=== PATIENT | female | born 1990 | race African-American/Black ===

== ENCOUNTER 2016-04-30 21:11 | Emergency (ER) | payer SELFPAY ==
[~2016-04-30] VITALS: Ht 157.5 cm; Wt 52.0 kg
[2016-04-30 21:12] VITALS: BP 129/58; PULSE 71; RESP 16; TEMP 98.6; O2SAT 99
[2016-04-30 22:53] LABS: BLOOD, URINE MOD (NEG); COMMENT (UR) CULT NOT INDICATED; CULTURE IF INDICATED CULT NOT INDICATED; GLUCOSE,URINE NEG (NEG); KETONE, URINE NEG (NEG); MUCUS URINE FEW /lpf (OCC); NITRITE,URINE NEG (NEG); PH, URINE 6.5 (5.0-8.5); SQUAMOUS EPITHELIAL CELL URINE <1 /hpf (0-5); URINE COLOR YELLOW (YELLW/STRAW)
== END 2016-04-30 23:26 | disposition left against medical advice (07) ==
LOC: NED 23:20
DX: R51 Headache (principal)
CPT/HCPCS: 81001; 84703; 99281

== ENCOUNTER 2016-07-30 18:28 | Emergency (ER) | payer OTHER ==
[2016-07-30 18:30] VITALS: BP 113/64; PULSE 72; RESP 18; TEMP 98.4; O2SAT 98
--- NOTE | 2016-07-30 21:28 | PD ---
HPI Chief Complaint: Pain: Acute or Chronic Time Seen by Provider: 21:06 Travel History International Travel<30 days: No Contact w/Intl Traveler<30days: No Traveled to known affect area: No History of Present Illness HPI Patient is a 25-year-old female comes in complaining of a painful lump to her left breast. She says she had one last year that needed to be removed. She had the surgery performed in [place]. She says she spoke with her surgeon in [place] who told her to get this checked out. She says she has had the lump for the past several months, but she is concerned because when they removed the previous cyst, she was told it was ready to burst. She has not had any fever or chills. She denies any leakage of fluid from her nipple or from the area. She denies any change in her skin. Her last menstrual period was a few days ago. PFSH Past Medical History Diminished Hearing: No Immunizations Current: Yes Migraines: Yes ?: Not Social History Alcohol Use: No Tobacco Use: No Substance Use: No Allergies-Medications (Allergen,Severity, Reaction): Coded Allergies: No Known Allergies (Unverified , 07/30/16) Review of Systems Except as stated in HPI: all other systems reviewed are Neg General / Constitutional: No: Fever, Chills HENT: No: Headaches, Lightheadedness Cardiovascular: No: Chest Pain or Discomfort Respiratory: No: Shortness of Breath Gastrointestinal: No: Nausea, Vomiting, Abdominal Pain Musculoskeletal: No: Pain Skin: No Rash, No Change in Pigmentation Neurologic: No: Weakness Physical Exam Narrative GENERAL: Awake and alert, in no acute distress. SKIN: Focused skin assessment warm/dry. HEAD: Atraumatic. Normocephalic. EYES: Pupils equal and round. No scleral icterus. No injection or drainage. ENT: No nasal bleeding or discharge. Mucous membranes pink and moist. NECK: Trachea midline. No JVD. CARDIOVASCULAR: Regular rate and rhythm. No murmur appreciated. RESPIRATORY: No accessory muscle use. Clear to auscultation. Breath sounds equal bilaterally. Breast: 2cm round, mobile, hard mass in the 3 o'clock position of the left breast. There is no leakage of fluid from the nipple. No skin changes. MUSCULOSKELETAL: No obvious deformities. No clubbing. No cyanosis. No edema. NEUROLOGICAL: Awake and alert. No obvious cranial nerve deficits. Motor grossly within normal limits. Normal speech. Data Data Last Documented VS Vital Signs Date Time Temp Pulse Resp B/P Pulse Ox O2 Delivery O2 Flow Rate FiO2 07/30/16 18:30 98.4 72 18 113/64 98 MDM Medical Decision Making Medical Screen Exam Complete: Yes Emergency Medical Condition: Yes Differential Diagnosis Fibrocystic breast changes versus breast abscess versus cyst versus mass Narrative Course Patient is a 25-year-old female comes in complaining of a painful lump to her left breast. Exam shows a mobile, tender mass in the left breast. There are no skin changes. No evidence of infection or signs of an abscess. Patient advised she needs to follow-up with a surgeon for further management. Mandatory referral placed. Advised to return to the ED as needed for any worsening symptoms. Diagnosis Primary Impression: Breast mass in female Referrals: Gretchen Nieto MD call for appointment Patient Instructions: Breast Mass (ED), General Instructions Additional Instructions: Follow up with a surgeon for further testing and management. Return to the ED as needed for any worsening symptoms. Disposition: 01 DISCHARGE HOME Condition: Stable Lizabeth Randolph MD Jul 30, 2016 21:28
== END 2016-07-30 23:08 | disposition home or self-care (01) ==
LOC: NEPD 18:28
DX: N63 Unspecified lump in breast (principal)
CPT/HCPCS: 99283

== ENCOUNTER 2016-10-17 12:26 | Emergency (ER) | payer OTHER ==
[~2016-10-17] VITALS: Ht 157.5 cm; Wt 51.0 kg
[2016-10-17 12:28] VITALS: BP 120/59; PULSE 86; RESP 20; TEMP 99; O2SAT 99
--- NOTE | 2016-10-17 12:38 | PD ---
Physical Exam Date Seen by Provider: Oct 17, 2016 Time Seen by Provider: 12:36 Narrative 25 yo female here for possible miscarriage vs ectopic. Was told to get recheck labs and US. She is about 2-3 weeks . having pelvic pain. Vitals are stable in triage. Awaiting bed placement. Data Data Last Documented VS Vital Signs Date Time Temp Pulse Resp B/P (MAP) Pulse Ox O2 Delivery O2 Flow Rate FiO2 10/17/16 12:28 99.0 86 20 120/59 (79) 99 Room Air [facility] Medical Record Reviewed: Yes Supervised Visit with LADONNA: No Scripts No Active Prescriptions or Reported Meds Brandon Murguia Oct 17, 2016 12:38
[2016-10-17 13:37] LABS: BLOOD, URINE NEG (NEG); COMMENT (UR) CULT NOT INDICATED; CULTURE IF INDICATED CULT NOT INDICATED; GLUCOSE,URINE NEG (NEG); KETONE, URINE NEG (NEG); NITRITE,URINE NEG (NEG); SQUAMOUS EPITHELIAL CELL URINE 3 /hpf (0-5); URINE COLOR YELLOW (YELLW/STRAW)
[2016-10-17 14:02] LABS: BETA HCG QUANT 1156 MIU/ML (0-5)
[2016-10-17] MEDS ORDERED: PREN29TA PO (15:58)
--- NOTE | 2016-10-17 15:58 | PD ---
HPI Chief Complaint: RAIZA Related Problem Time Seen by Provider: 15:15 Travel History International Travel<30 days: No Contact w/Intl Traveler<30days: No Traveled to known affect area: No History of Present Illness HPI This is a 25-year-old female who presents to the emergency department with concern for ectopic . She says 2 days ago she was having some pelvic discomfort and she went to an outside emergency department where they did her beta hCG and it was 450. She was told to follow-up in 2 days for repeat blood count. She's not had any vaginal bleeding and she denies any abdominal pain currently. She's never been before. She denies any lightheadedness or dizziness. PFSH Past Medical History Diminished Hearing: No Immunizations Current: Yes Migraines: Yes ?: LMP: 09/20/16 : 0 Past Surgical History Other Surgery: Yes (REMOVAL OF A LEFT BREAST LUMP) Social History Alcohol Use: No Tobacco Use: No Substance Use: No Allergies-Medications (Allergen,Severity, Reaction): Coded Allergies: No Known Allergies (Unverified , 07/30/16) Reported Meds & Prescriptions Reported Meds & Active Scripts Active Plus Iron 29-1 mg ( Vit-Iron Carbonyl) 1 Tab Tab 1 Tab PO DAILY Review of Systems Except as stated in HPI: all other systems reviewed are Neg Physical Exam Narrative GENERAL: Well-appearing, no acute distress, nontoxic SKIN: Warm and dry. HEAD: Atraumatic. Normocephalic. ENT: No nasal bleeding or discharge. Moist mucous membranes MUSCULOSKELETAL: No obvious deformities. No clubbing. No cyanosis. No edema. NEUROLOGICAL: Awake and alert. No obvious cranial nerve deficits. Motor grossly within normal limits. Normal speech. PSYCHIATRIC: Appropriate mood and affect; insight and judgment normal. Data Data Last Documented VS Vital Signs Date Time Temp Pulse Resp B/P (MAP) Pulse Ox O2 Delivery O2 Flow Rate FiO2 10/17/16 12:28 99.0 86 20 120/59 (79) 99 Room Air Orders Orders Beta Hcg (Quant/Titer) (10/17/16 12:35) Complete Rh (10/17/16 12:35) Type And Screen (10/17/16 12:35) Urinalysis - C+S If Indicated (10/17/16 12:35) Ed Urine Pregnancytest Poc (10/17/16 12:35) Labs Laboratory Tests Test 10/17/16 13:03 Urine Color YELLOW Urine Turbidity CLEAR Urine pH 6.0 Urine Specific [place] 1.028 Urine Protein NEG mg/dL Urine Glucose (UA) NEG mg/dL Urine Ketones NEG mg/dL Urine Occult Blood NEG Urine Nitrite NEG Urine Bilirubin NEG Urine Urobilinogen LESS THAN 2.0 MG/DL Urine Leukocyte Esterase NEG Urine RBC LESS THAN 1 /hpf Urine WBC 2 /hpf Urine Squamous Epithelial Cells 3 /hpf Microscopic Urinalysis Comment CULT NOT INDICATED Human Chorionic Gonadotropin, Quant 1156 MIU/ML [facility] Medical Decision Making Medical Screen Exam Complete: Yes Emergency Medical Condition: Yes Interpretation(s) HCG 1156 Differential Diagnosis , ectopic Narrative Course This is a 25-year-old female who presents to the emergency department having had some abdominal discomfort 2 days ago. She had a beta hCG which was 450. Repeated a beta hCG today 48 hours later and it is 1156, reassuring for normal intrauterine . Patient was told her results. She is currently asymptomatic. I advised her to return to the emergency department if she develops new symptoms but otherwise I think she is safe to follow-up with an outpatient INTAKE NURSE. Diagnosis Primary Impression: Qualified Codes: Z3A.01 - Less than 8 weeks gestation of Patient Instructions: General Instructions Additional Instructions: If you develop abdominal pain or vaginal bleeding return to the emergency department. Med/Other Pt SpecificInfo: Prescription(s) given Scripts Vit-Iron Carbonyl ( Plus Iron 29-1 mg) 1 Tab Tab 1 TAB PO DAILY for Nutritional Supplement, #30 TAB 0 Refills Prov: Pau Bryson MD 10/17/16 Disposition: 01 DISCHARGE HOME Condition: Stable Pau Bryson MD Oct 17, 2016 15:58
== END 2016-10-17 16:04 | disposition home or self-care (01) ==
LOC: NEPD 12:26
DX: Z04.8 Encounter for examination and observation for other specified reasons (principal); Z86.69 Personal history of other diseases of the nervous system and sense organs; Z3A.01 Less than 8 weeks gestation of pregnancy
CPT/HCPCS: 81001; 84702; 86850; 86900; 86901; 99283